=== PATIENT | female | born 1970 | race Two or more races ===

== ENCOUNTER 2016-08-18 08:20 | Day surgery (SDC) | payer SELFPAY ==
[~2016-08-18 08:20] MED LIST: ANUSOL HC25 MG/SUP1 PR; ANUSOL-HC25 MG/SUPP RC; NO MEDICATION; NORCO 5-325 TA1 EACH PO; ONE DAILY1 EAC1 PO; PRENATAL VITAM1 EAC8 PO; PRILOSEC20 MG PO; PROCTOFOAM-HC 110 GM PR; TYLENOL325 MG PO
[2016-08-18 09:44] LABS: HCT-HEMATOCRIT 42.9 % (34.0-49.0); HGB-HEMOGLOBIN 14.8 gm/dl (12.0-15.5); MCV (MEAN CELL VOLUME) 86.3 fl (82.0-96.0); RED CELL DISTRIBUTION WIDTH 12.7 % (12.4-16.4)
[2016-08-18 09:48] LABS: POTASSIUM 4.1 mmol/L (3.7-5.1)
== END 2016-08-18 15:20 ==
LOC: SRG 08:20 → SHSB 08:22 → ORE 11:08 → PACU 12:15 → SHSB 12:50
PROVIDERS: Otolaryngology
PROC: 099R4ZZ Drainage of Left Maxillary Sinus, Percutaneous Endoscopic Approach (ICD-10-PCS; principal; 2016-08-18)
PROC: 099Q4ZZ Drainage of Right Maxillary Sinus, Percutaneous Endoscopic Approach (ICD-10-PCS; 2016-08-18)
PROC: 09TV4ZZ Resection of Left Ethmoid Sinus, Percutaneous Endoscopic Approach (ICD-10-PCS; 2016-08-18)
PROC: 09TU4ZZ Resection of Right Ethmoid Sinus, Percutaneous Endoscopic Approach (ICD-10-PCS; 2016-08-18)
PROC: 099W4ZZ Drainage of Right Sphenoid Sinus, Percutaneous Endoscopic Approach (ICD-10-PCS; 2016-08-18)
DX: J32.8 Other chronic sinusitis (principal); G43.909 Migraine, unspecified, not intractable, without status migrainosus; Z88.8 Allergy status to other drugs, medicaments and biological substances; Z91.010 Allergy to peanuts; Z98.890 Other specified postprocedural states
CPT/HCPCS: J0171; J0690; J2405; J7030